=== PATIENT | female | born 1950 | race Caucasian/White ===

== ENCOUNTER 2019-12-18 07:45 | Outpatient (CLI) | payer MEDICARE, OTHER, SELFPAY ==
[2019-12-18 08:33] LABS: Basophils Absolute Auto 0.1 K/mm3 (0.0-0.1); Eosinophils Absolute Auto 0.3 K/mm3 (0-0.3); Eosinophils Percent Auto 4.8 % (0-4.4); Hematocrit 37.3 % (37.0-47.0); Immature Granulocyte Absolute 0.04 K/mm3 (0.00-0.031); Immature Granulocyte Percent A 0.7 % (0-0.5); Lymphocytes Absolute Auto 2.28 K/mm3 (0.9-3.2); Lymphocytes Percent Auto 37.7 % (18.3-44.2); Mean Corpuscular HGB Conc 32.2 g/dl (32-36); Mean Corpuscular Hemoglobin 28.4 pg (26-34); Mean Corpuscular Volume 88.4 fl (80-100); Mean Platelet Volume 10.4 fl (7.4-10.4); Monocytes Absolute Auto 0.4 K/mm3 (0.1-0.6); Monocytes Percent Auto 7.1 % (2.6-8.5); Neutrophils Percent Auto 48.7 % (45.5-73.1); Platelet Count Result 314 k/mm3 (150-375); Red Blood Count 4.22 M/mm3 (4.2-5.4); Red Cell Distribution Width 15.9 % (11.5-14.5); White Blood Count 6.1 K/mm3 (4.5-10.0)
[2019-12-18 08:45] LABS: Hemoglobin A1C 5.5 % (<5.7)
[2019-12-18 08:46] LABS: Alanine Aminotransferase 20 U/L (4-35); Albumin Level 4.4 g/dL (3.5-5.1); Alkaline Phosphatase 122 U/L (38-126); Anion Gap 6 mmol/L (8-16); Aspartate Amino Transferase 25 U/L (14-36); Bilirubin,Total 0.3 mg/dL (0.2-1.3); Blood Urea Nitrogen 10 mg/dL (7-17); Calcium 9.3 mg/dL (8.4-10.2); Carbon Dioxide 28 mmol/L (22-30); Chloride 105 mmol/L (98-107); Cholesterol 206 mg/dL (0-200); Estimated Glomerular Filt Rate > 60; Glucose 98 mg/dL (65-105); HDL Direct 92 mg/dL; Potassium 4.7 mmol/L (3.4-5.0); Sodium 139 mmol/L (137-145); Triglycerides 64 mg/dL (<150)
[2019-12-18 08:49] LABS: Creatinine Urine 107.7 mg/dL
[2019-12-18 08:57] LABS: LDL Cholesterol Direct 76 mg/dL
[2019-12-18 09:04] LABS: MALB Creatinine Ratio < 5.6 mg/g (0-30); Microalbumin Urine Random < 6.0 mg/L (0-16.7)
[2019-12-18 09:34] LABS: Vitamin D 25 Hydroxy 38.4 ng/mL
== END 2019-12-18 07:46 | disposition home or self-care (01) ==
LOC: ANHLAB 07:48
PROVIDERS: PCP Internal Medicine; Visit Provider Internal Medicine
DX: E78.5 Hyperlipidemia, unspecified (principal); E55.9 Vitamin D deficiency, unspecified; R73.01 Impaired fasting glucose
CPT/HCPCS: 36415; 80053; 80061; 82043; 82306; 83036; 84443; 85025

== ENCOUNTER 2020-12-12 07:07 | Outpatient (CLI) | payer MEDICARE, SELFPAY ==
[2020-12-12 07:45] LABS: Basophils Absolute Auto 0.1 K/mm3 (0.0-0.1); Basophils Percent Auto 0.9 % (0.2-1.2); Eosinophils Absolute Auto 0.4 K/mm3 (0-0.3); Eosinophils Percent Auto 5.5 % (0-4.4); Hematocrit 38.2 % (37.0-47.0); Hemoglobin 12.5 g/dL (12.0-15.0); Immature Granulocyte Absolute 0.04 K/mm3 (0.00-0.031); Immature Granulocyte Percent A 0.6 % (0-0.5); Lymphocytes Absolute Auto 2.63 K/mm3 (0.9-3.2); Lymphocytes Percent Auto 41.4 % (18.3-44.2); Mean Corpuscular HGB Conc 32.7 g/dl (32-36); Mean Corpuscular Hemoglobin 30.9 pg (26-34); Mean Corpuscular Volume 94.3 fl (80-100); Mean Platelet Volume 10.3 fl (7.4-10.4); Monocytes Absolute Auto 0.4 K/mm3 (0.1-0.6); Monocytes Percent Auto 5.5 % (2.6-8.5); Neutrophils Absolute Auto 2.9 K/mm3 (1.3-6.7); Neutrophils Percent Auto 46.1 % (45.5-73.1); Platelet Count Result 267 k/mm3 (150-375); Red Blood Count 4.05 M/mm3 (4.2-5.4); White Blood Count 6.4 K/mm3 (4.5-10.0)
[2020-12-12 09:25] LABS: Alanine Aminotransferase 19 U/L (4-35); Albumin Level 4.2 g/dL (3.5-5.1); Alkaline Phosphatase 101 U/L (38-126); Anion Gap 7 mmol/L (8-16); Aspartate Amino Transferase 25 U/L (14-36); Bilirubin,Total 0.4 mg/dL (0.2-1.3); Blood Urea Nitrogen 17 mg/dL (7-17); Calcium 9.2 mg/dL (8.4-10.2); Carbon Dioxide 25 mmol/L (22-30); Chloride 109 mmol/L (98-107); Cholesterol 218 mg/dL (0-200); Estimated Glomerular Filt Rate > 60; Glucose 103 mg/dL (65-110); HDL Direct 109 mg/dL; Potassium 3.9 mmol/L (3.4-5.0); Sodium 141 mmol/L (137-145); Triglycerides 103 mg/dL (<150)
[2020-12-12 09:36] LABS: LDL Cholesterol Direct 73 mg/dL
[2020-12-12 09:39] LABS: Hemoglobin A1C 5.5 % (<5.7)
[2020-12-12 10:06] LABS: Creatinine Urine 62.6 mg/dL
[2020-12-12 10:16] LABS: MALB Creatinine Ratio < 9.6 mg/g (0-30); Microalbumin Urine Random < 6.0 mg/L (0-16.7)
[2020-12-12 10:37] LABS: Folic Acid 5.9 ng/mL (2.76->20); Vitamin B12 > 1000.0 pg/mL (239-931)
== END 2020-12-12 07:08 | disposition home or self-care (01) ==
PROVIDERS: PCP Internal Medicine; Visit Provider Internal Medicine
DX: E53.8 Deficiency of other specified B group vitamins (principal); E55.9 Vitamin D deficiency, unspecified; E78.2 Mixed hyperlipidemia; R73.01 Impaired fasting glucose; Z98.84 Bariatric surgery status
CPT/HCPCS: 36415; 80053; 80061; 82043; 82306; 82607; 82746; 83036; 84443; 85025

== ENCOUNTER 2020-12-14 10:31 | Outpatient (CLI) | payer MEDICARE, SELFPAY ==
--- NOTE | ~2020-12-14 | MR_ITS ---
EXAMINATION: MR wrist LT wo con DATE: 12/14/2020 11:51 INDICATION: Left hand pain and mass TECHNIQUE: Magnetic resonance imaging (MRI) of the left wrist was performed without intravenous contr ast. Sequences performed include axial PD-weighted FSE and PD-weighted FS FSE, coronal PD-weighted FS FSE and T1-weighted SE, and sagittal PD-weighted FS FSE and PD-weighted FSE. COMPARISON: Left hand radiographs dated 09/15/2020 FINDINGS: Intrinsic ligaments: The scapholunate and lunotriquetral ligaments are normal. Triangular fibrocartilage complex (TFCC): Small heterotopic ossicle at the posterior aspect of the ulnar styloid attachments the triangular fib rocartilage complex likely sequela of chronic partial tear. There is a small full-thickness tear at t he radial side of the central fibrocartilaginous disc of the triangular fibrocartilage complex. The f oveal attachment fibrocartilage as well as the dorsal and volar radioulnar ligaments are normal. The ulnar collateral ligament, ulnotriquetral ligament and meniscal homologue are normal. The extensor ca rpi ulnaris tendon subjacent appears thickened but intact consistent with likely chronic scarring. Extensor wrist: Mild tendinopathy with mild diffuse from thickening and mild increased signal some of the extensor di gitorum longus tendons at the level of the wrist joint. Focal split tear with large intrasubstance ga nglion cyst within and markedly splaying the tendon fibers of the extensor digitorum longus tendon to the third digit. The ganglion cyst measures 13 mm proximal to distal and radial to ulnar and up to 5 -6 mm in thickness. This immediately underlies the marker indicating the mass of concern. There is an additional small amount of fluid within the tendon sheath surrounding the tendons extending to the t hird and fourth digits more distally at the level of the base of the metacarpals. Additional small am ount of fluid consistent with mild tenosynovitis in the second dorsal compartment surrounding the nor mal extensor carpi radialis longus and brevis tendons and in the first dorsal compartment surrounding the extensor pollicis longus and abductor pollicis brevis tendons which demonstrate mild tendinopath y without discrete tears at their distal first metacarpal insertions. Flexor wrist: The flexor tendons of the wrist are normal. No abnormality in the carpal tunnel with normal median n erve. Guyon's canal: Guyon's canal including the ulnar nerve and artery are normal. Bones/other: Severe osteoarthritis at the first carpometacarpal joint with remodeling and subarticular cystic lu ge at the base of the first metacarpal which is mildly dorsally subluxed. There is prominent likely r eactive synovitis surrounding the joint space. Bone alignment is otherwise normal. Less severe mild o steoarthritis at the wrist, midcarpal, triscaphe and first metacarpophalangeal joints. No fracture or pathologic marrow replacing process. IMPRESSION: 1. 13 x 13 x 5-6 mm intrasubstance ganglion cyst within a longitudinal split tear and which splays th e tendon fibers of the extensor digitorum longus tendon of the third digit. 2. Severe osteoarthritis at the first carpometacarpal joint. 3. Full-thickness tear at the radial side of the central fiber cartilaginous disc of the triangular f ibrocartilage complex and small heterotopic ossicle suggesting chronic partial tear at the foveal att achment. Reviewed, dictated and finalized at location A. IMPRESSION: 1. 13 x 13 x 5-6 mm intrasubstance ganglion cyst within a longitudinal split te ar and which splays the tendon fibers of the extensor digitorum longus tendon o f the third digit. 2. Severe osteoarthritis at the first carpometacarpal joint. 3. Full-thickness tear at the
== END 2020-12-14 10:32 | disposition home or self-care (01) ==
PROVIDERS: PCP Internal Medicine; Visit Provider Orthopaedic Surgery
DX: M67.432 Ganglion, left wrist (principal); M18.12 Unilateral primary osteoarthritis of first carpometacarpal joint, left hand
CPT/HCPCS: 73221

== ENCOUNTER 2020-12-21 08:58 | Outpatient (CLI) | payer MEDICARE, SELFPAY ==
--- NOTE | 2020-12-21 10:30 | ECG_ITS ---
Measurements Intervals [place] Rate: 55 P: 42 TN: 147 QRS: 52 QRSD: 138 T: 8 QT: 466 QTc: 447 Interpretive Statements SINUS BRADYCARDIA RIGHT BUNDLE BRANCH BLOCK ABNORMAL ECG Electronically Signed On 12-21-2020 10:54:18 CDT by Arvind Adair D.O.
[2020-12-21 12:02] LABS: Iron 132 ug/dL (37-170)
[2020-12-21 12:12] LABS: Percent Iron Saturation 36 % (20-50)
== END 2020-12-21 08:59 | disposition home or self-care (01) ==
PROVIDERS: PCP Internal Medicine; Visit Provider Internal Medicine
DX: G25.81 Restless legs syndrome (principal); Z98.890 Other specified postprocedural states; I10 Essential (primary) hypertension; I44.1 Atrioventricular block, second degree; R00.1 Bradycardia, unspecified; I45.10 Unspecified right bundle-branch block
CPT/HCPCS: 36415; 82728; 83540; 83550; 93005

== ENCOUNTER 2021-01-19 10:48 | Outpatient (CLI) | payer MEDICARE, SELFPAY ==
[2021-01-19 12:34] LABS: Urine Cotinine NEGATIVE
== END 2021-01-19 10:49 | disposition home or self-care (01) ==
LOC: ANHSURGERY 10:53
PROVIDERS: PCP Internal Medicine; Visit Provider Orthopaedic Surgery
DX: M17.11 Unilateral primary osteoarthritis, right knee (principal); Z01.818 Encounter for other preprocedural examination
CPT/HCPCS: 80307; 86850; 86900; 86901; 87081

== ENCOUNTER 2021-01-23 01:18 | Day surgery (SDC) | payer MEDICARE, SELFPAY ==
[2021-01-19 11:11] VITALS: BP 154/71; PULSE 69; RESP 18; TEMP 36.9; O2SAT 98; BMI 34.2
[2021-01-23] VITALS (14 sets, daily range): BP systolic 119–173; BP diastolic 48–78; PULSE 64–89; RESP 10–24; TEMP 36.5–37.6; O2SAT 91–100; BMI 41.3
--- NOTE | ~2021-01-23 | XR_ITS ---
EXAMINATION: XR knee RT 2V DATE: 01/23/2021 13:21 INDICATION: Postoperative evaluation following right total knee arthroplasty. TECHNIQUE: Anteroposterior and lateral views of the right knee were obtained. COMPARISON: 01/02/2021 FINDINGS: Right total knee arthroplasty with patellar resurfacing appears well seated and in near anatomic alig nment. No fractures identified. Expected postoperative subcutaneous, intramedullary and intra-articu lar gas. IMPRESSION: 1. Right total knee arthroplasty, negative for postoperative purposes. Reviewed, dictated and finalized at location A.
--- NOTE | 2021-01-23 08:19 | WPDANESEPPF ---
Anes - Initial Pre Proc Eval Procedure: Operation Date: 01/23/21 10:30 Proposed Procedures p Right Total Knee Arthroplasty - Nomi Munoz MD Date/Time: 01/23/21 08:19 Surgeon: Nomi Munoz MD Pre Op Diagnosis: Oosteoarthritis Right Knee Patient Data Age: 70 Gender: F Height: 1.68 m Weight: 96.4 kg Last Vital Signs Temp 36.9 C 01/19/21 11:11 Pulse 69 01/19/21 11:11 Resp 18 01/19/21 11:11 BP 154/71 H 01/19/21 11:11 Pulse Ox 98 01/19/21 11:11 Allergies Allergy/AdvReac Type Severity Reaction Status Date / Time codeine Allergy Unknown Itching Verified 01/23/21 09:18 Home Medications Medication Instructions Recorded Confirmed Type cyclobenzaprine 10 mg tablet 10 mg PO DAILY PRN tablet 12/22/19 01/23/21 History rivaroxaban 10 mg tablet 10 mg PO DAILY #14 tablet 01/18/21 01/19/21 Rx ascorbic acid-collagen [Collagen 1 cap PO DAILY 01/19/21 01/23/21 History Plus Vitamin C] calcium carb-D3-mag ox-zinc ox 1 tablet PO DAILY 01/19/21 01/23/21 History cholecalciferol (vitamin D3) 25 mcg PO DAILY 01/19/21 01/23/21 History diphenhydramine HCl [Allergy 25 mg PO DAILY 01/19/21 01/23/21 History Capsule] multivitamin [Multiple Vitamin] 1 tablet PO DAILY 01/19/21 01/23/21 History naproxen sodium [Aleve] 220 mg PO QAM 01/19/21 01/23/21 History pantoprazole 40 mg PO QAM 01/19/21 01/23/21 History Patient hx anesthesia problems: none Family hx anesthesia problems: none Results Review: All pre-operative results and documents have been reviewed as part of the pre-operative evaluation. [facility] Past Medical History Medical History (Updated 01/23/21 @ 08:22 by Haseeb Arizmendi MD) Arthritis of carpometacarpal (CMC) joint of left thumb BMI 33.0-33.9,adult Carpal tunnel syndrome, bilateral Fusion of spine, cervical region (~03/19/18) Gout Hypertension Mobitz (type) I (Wenckebach's) atrioventricular block Obesity (BMI 30-39.9) Osteoarthritis Osteoarthritis of right knee Surgical History Surgical History (Updated 01/23/21 @ 08:22 by Haseeb Arizmendi MD) H/O section H/O gastric bypass H/O left knee surgery TKA 2016 H/O: hysterectomy History of arthroscopy of right knee (~12/13/17) History of bunionectomy History of cholecystectomy History of lumbar fusion (~04/2019) Hx of bariatric surgery (~2013) Family History Family History Mother Family history of diabetes mellitus in first degree relative Hypertension Arthritis Grandparent Family history of heart disease in male family member before age 55 Sibling Family history of diabetes mellitus in first degree relative Hypertension Arthritis Father Arthritis Cancer Social History Social History Smoking status: Never smoker Alcohol intake: current Drinks per week: 7 Substance use: never Living arrangements: with family Additional living arrangements comments: [facility] Spiritual care concerns: No Anes - Eval Final PreProcedure Day of Procedure 01/23/21 08:19 Patient weight: obese Heart: regular rate and rhythm Lungs: clear to auscultation and normal air movement Airway: Mallampati scale class II Neurological: alert and oriented Last oral intake: >/= 8 hours ASA classification: III Emergent: no Anesthetic plan: proceed Anesthesia type and monitoring: general LMA Results Review: All pre-operative results and documents have been reviewed as part of the pre-operative evaluation. Informed Consent: The patient's anesthetic plan and its attendant risks and benefits were discussed with the patient/family/POA. Questions were solicited and answers provided to the satisfaction of the patient/family/POA.
--- NOTE | 2021-01-23 08:23 | WPDANESPNB ---
Anes - Peripheral Nerve Block Date/Time: 01/23/21 08:23 I have discussed with the patient/family/POA the placement of a peripheral nerve block for post-operative pain management, including associated risks, benefits, complications, and side effects. Alternative methods of post-operative analgesia were detailed. Questions were solicited and answers provided to the satisfaction of the patient/family/POA. Time-Out: A pre-procedural Time-Out was completed immediately before starting the procedure and confirmed: Patient Identification, Site, Procedure, Patient Position and the Availability of Requisite Equipment. Clinical Indications: Acute post-operative pain management requested by the operative surgeon. Nerve Block Insertion Note Anes-nerve block: adductor canal right Patient position: supine Skin prep: chlorhexidine Needle: 22 gauge, stimulating, insulated echogenic needle. Needle length: 80 mm Technique: ultrasound Technique comment: in plane Injectate: bupivacaine 0.5% with epi 5 mcg/ml (30cc) Observations: tolerated well Complications: none Procedure start time:: 1045 Procedure end time:: 1050
[2021-01-23] MEDS: ACETAMINOPHEN 500 MG TABLET 1000 MG PO ×3 (09:04→23:53)
[2021-01-23] MEDS: TRANEXAMIC ACID 1,000MG/ISO100 1,000 MG/100 ML BAG 200 MG IVPB (09:05)
[2021-01-23] MEDS: LACTATED RINGERS 1,000 ML 30 ML IV CONT (09:17)
--- NOTE | 2021-01-23 09:49 | WPDHPUPDATE1 ---
History and Physical Update Update Date/Time: 01/23/21 09:49 History and Physical has been reviewed, including an updated exam of the patient. There are NO changes in the patient's condition. Risks, benefits, and alternatives have been discussed and questions answered. Patient agrees to proceed with procedure.
[2021-01-23] MEDS: ceFAZolin 2 GM/D5W 50 ML 2 GM/50 ML BAG IVPB (10:57)
[2021-01-23] MEDS: GENTAMICIN BONE CEMENT REFOBACIN 1 EACH TOPICAL (11:35)
--- NOTE | 2021-01-23 12:56 | W.PM.PROC2 ---
Procedure Note - Detailed Date of Procedure 01/23/21 Pre-op Diagnosis Oosteoarthritis Right Knee Post-op Diagnosis same Procedure Performed Right total knee replacement Surgeon Nomi Munoz MD Group Exercise Class Instructor Nedra Rose Anesthesia general and regional Description of Procedure The patient was identified and proper site identified. In the preop holding area the anesthesia team performed a right lower extremity sub sartorial block after which the patient was taken to the operating room and transferred to the OR table positioning supine taking care to pad the torso and extremities. After general anesthetic induction and intubation, a nonsterile tourniquet was placed high on the right thigh. The right lower extremity was prepped and draped in the usual sterile fashion. The extremity was exsanguinated and with the knee flexed tourniquet was inflated to 300 mmHg remaining up for approximately 54 minutes. An anterior midline incision was made and a modified medial parapatellar approach was used. Infra and suprapatellar fat pads were excised. Patella was resected leaving 15 mm thickness and prepared for the 31 round three peg component. Using the intramedullary guide the distal femur was cut in the proper orientation for the size 62.5 femoral component. Using the extramedullary guide the tibia was cut perpendicular to the long axis protecting collateral ligaments and popliteal structures. It was sized to a 71. Flexion and extension gaps were balanced. Trial reduction was undertaken and the weight-bearing line was noted to passed through the center of the joint. Proximal tibia was drilled and punched in the proper orientation for the real component. Trial components were removed. The bone surfaces were washed with pulsatile lavage and dried. The real components were cemented simultaneously. The knee was held in extension and the patella held clamped until the cement had cured. Excess cement was removed from the joint. After trialing it was determined that the 11 mm insert gave full range of motion from 0-120 degrees of flexion and the patella tracked in the femoral groove with no lift-off. After final lavage the joint the real size 11 poly insert was placed and secured with a locking bar. A Betadine and saline wash was placed into the wound and allowed to sit for approximately 3 minutes and then evacuated. Periarticular tissues were infiltrated with 60 cc of the arthroplasty solution. 1 g of tranexamic acid was left in the wound. The extensor mechanism was repaired with #2 Vicryl suture and 0 looped PDS suture. Subcu was reapproximated with three 0 Monocryl, 2-0 Stratafix and tissue adhesive for the skin. A sterile dressing was applied. She tolerated the procedure well, was awakened and extubated, transferred to the bed and was taken to recovery area in stable condition. There were no known intraoperative complications. Perioperative antibiotics were administered. Estimated Blood Loss 150 Tourniquet Time 54 Drains No Packing No Pathology none sent Complications No immediate complications Condition stable Disposition PACU
[2021-01-23] MEDS: fentaNYL CITRATE INJ (*CRX) 100 MCG/2 ML VIAL 25 MCG IV PUSH ×2 (13:30→13:59)
--- NOTE | 2021-01-23 13:43 | SUR.PHASEI ---
Simple mask removed at 1341.
[2021-01-23] MEDS: oxyCODONE HCL (*CRX) 2.5 MG TAB IR PO (15:10)
[2021-01-23] MEDS: DOCUSATE SODIUM 100 MG CAPSULE PO (16:06)
[2021-01-23] MEDS: oxyCODONE HCL (*CRX) 5 MG TAB IR PO ×2 (16:08→20:58)
[2021-01-23] MEDS: CYCLOBENZAPRINE HCL 10 MG TABLET PO (16:08)
--- NOTE | 2021-01-23 16:25 | PC.NURSE ---
pt weaned off post-op 2L nasal cannula oxygen. Pt is satting at 95% oxygenation on room air.
[2021-01-23] MEDS: KETOROLAC 15 MG/ML VIAL (*BKC) IV PUSH ×2 (18:04→23:53)
[2021-01-24 03:22] VITALS: BP 110/41; PULSE 60; RESP 16; TEMP 36.8; O2SAT 97
[2021-01-24] MEDS: oxyCODONE HCL (*CRX) 5 MG TAB IR PO ×2 (03:32→11:42)
[2021-01-24] MEDS: KETOROLAC 15 MG/ML VIAL (*BKC) IV PUSH (06:35)
[2021-01-24] MEDS: ACETAMINOPHEN 500 MG TABLET 1000 MG PO ×2 (06:37→11:40)
--- NOTE | 2021-01-24 07:24 | PM.DS ---
DS: Admitting Diagnosis Discharge Date January 24, 2021 Admitting Diagnosis osteoarthritis right knee DS: Discharge Diagnosis Discharge Diagnosis (1) History of right knee joint replacement: Code(s): Z96.651 - Presence of right artificial knee joint Status: Resolved Assessment and Plan: Plan to discharge home today after second physical therapy. DS: Summary Hospital Course Reason for hospitalization: Observation following outpatient procedure Hospital Course: Following the patient's surgery, she was admitted to the floor for observation and to begin her therapy. Made reasonable progress and plan is to discharge later today. Status at Discharge Functional status at discharge: uses cane/walker Overall status at discharge: patient is not back to baseline Time Spent with Patient Time attestation: Total time spent providing and/or coordinating discharge services: Exam Const: General: cooperative, no acute distress and alert Nutritional Appearance: other Orientation/consciousness: patient oriented x3 Limitations: no limitations HENMT: Head: normal to inspection Ears: hearing grossly normal bilaterally Face and sinus: face symmetric Mouth: Yes moist mucous membranes Teeth and gingiva: fair dentition Eyes: Alignment and Position: alignment normal and position normal Sclera: sclerae normal Neck: Neck: normal visual inspection and nontender Chest: Chest palpation & inspection: normal inspection of the chest Resp: Effort & Inspection: normal respiratory effort and able to speak in complete sentences GI: Inspection: other ( Nondistended nontender) Skin: General skin exam: normal color Rashes: no rashes Neuro: General: patient oriented x3 Cognition (Neuro): normal cognition Speech: normal speech Gait exam (Neuro): Other gait observations present Extrem: General: normal to inspection and other Other: Exam of the right knee shows a dry incision. Mild bruising noted. Modest swelling. Calves negative. Grossly neurovascular status intact right lower extremity. Psych: Appearance: grossly normal Mental Status: mental status grossly normal DS: Data Imaging Attestation: I personally reviewed and interpreted this imaging study as follows: Discharge Plan Discharge Patient Disposition: Home, Self-Care Discharge Instructions: 3 times daily for 20 minutes each time, reclining in bed with ice packs over the incision and a pillow underneath the calf of the affected leg, not under the knee. Your wound is glued so it is okay to get into the shower and get the wound wet in two days. Be sure to read through all the information that came from a my office and the hospital. Most of the answers you will need can be found that material. Call the office with any questions that you cannot find answers to, or concerns you may have. After the Xarelto is completed, start taking one coated 325 mg aspirin daily and do this for four more weeks. Please call [facility] at as soon as possible to verify 7your follow-up appointment to be seen in 2 weeks. Also, call the office with any orthopedic/surgical related questions prior to follow-up. Be sure to get up and move around several times daily but do not overdo it. You will be on Celebrex twice daily for seven days. Be sure to take that as well. Take the arthritis formula Tylenol 650 mg tablet on an 8 hour schedule. A good 8 hour schedule is: 6:00 a.m., 2:00 p.m., 10:00 p.m. you may take the prescribed pain medication along with the Tylenol; it is not to be taken instead of the Tylenol. I would like for you to take the Tylenol on a schedule for 2-3 weeks. It is helpful to write out a schedule for the first week or two for the medications. Once the Xarelto is completed, if you wish to supplement your pain regimen with [id number] anti-inflammatory such as Advil or Aleve, that is fine. Follow the label instructions. Do not take this medicine
[2021-01-24] MEDS: DOCUSATE SODIUM 100 MG CAPSULE PO (08:39)
[2021-01-24] MEDS: PANTOPRAZOLE 40 MG TABLET PO (08:39)
[2021-01-24] MEDS: diphenhydrAMINE HCl CAP 25 MG CAPSULE PO (08:39)
[2021-01-24] MEDS: RIVAROXABAN 10 MG TABLET PO (08:40)
[2021-01-24] MEDS: CHOLECALCIFEROL 1,000 UNITS TABLET 1000 UNITS PO (08:40)
[2021-01-24 08:41] VITALS: RESP 16; O2SAT 98
[2021-01-24] MEDS: MULTIVITAMINS THERAPEUTIC TAB (*BKC) 1 TABLET PO (08:41)
--- NOTE | 2021-01-24 11:03 | PCPTNOTE ---
On 01/24/21, the student, Felipe Coelho, provided care and completed [facility] documentation on this patient. I have reviewed the student's documentation and agree with the findings.
== END 2021-01-24 12:55 | disposition home or self-care (01) ==
LOC: ANHSURGERY 12:50 → ANH2MED 14:39
PROVIDERS: PCP Internal Medicine; Visit Provider Orthopaedic Surgery
PROC: (CPT 27447; principal; 2021-01-23 10:30)
DX: M17.11 Unilateral primary osteoarthritis, right knee (principal); G89.18 Other acute postprocedural pain; I10 Essential (primary) hypertension; I44.1 Atrioventricular block, second degree; M10.9 Gout, unspecified; Z98.1 Arthrodesis status; Z79.01 Long term (current) use of anticoagulants; E66.9 Obesity, unspecified; Z68.41 Body mass index [BMI] 40.0-44.9, adult
CPT/HCPCS: 27447; 64447; 73560; 97110; 97161; 97165; A9270; C1713; C1776; J0171; J0690; J1100; J1170; J1885; J2250; J2270; J2370; J2405; J2704; J2795; J3010; J7120

== ENCOUNTER 2021-02-10 07:42 | Outpatient (CLI) | payer MEDICARE, SELFPAY ==
--- NOTE | ~2021-02-10 | DEXA_ITS ---
Bone Density Report Name: Kelli Mckeon Age: 70 Sex: Female Ethnicity: White Date of : 1950 Indication: postmenopausal; parental hip fracture; height loss; prior fracture; hysterectomy; Referring Provider: Martínez Jack Study: Bone densitometry was performed. Exam Date: February 10, 2021 Accession number: [id number] Bone Density: Region BMD T-score Z-score Classification Femoral Neck (Left) 0.694 -1.4 0.4 Osteopenia Total Hip (Left) 0.940 0.0 1.5 Normal Total Hip Bilateral Avg 0.896 -0.3 1.1 Normal Femoral Neck (Right) 0.676 -1.6 0.2 Osteopenia Total Hip (Right) 0.851 -0.7 0.7 Normal World Health Organization criteria for BMD impression classify patients as: Normal (T-score at or above -1.0), Osteopenia (T-score between -1.0 and -2.5), or Osteoporosis (T-score at or below -2.5). 10-year Fracture Risk(1): Major Osteoporotic Fracture 23% Hip Fracture 3.8% Reported Risk Factors: [place] (), Neck BMD=0.676, BMI=34.4, previous fracture, parental fracture (1) FRAX(R) Version 3.08. Fracture probability calculated for an untreated patient. Fracture probability may be lower if the patient has received treatment. Previous Exams: Region Exam Age BMD T-score BMD Change BMD Change Date g/cm2 vs Baseline vs Previous Total Hip(Left) 02/10/2021 70 0.940 0.0 -0.065(-6.5%)* -0.065(-6.5%)* 08/09/2017 67 1.005 0.5 Total Hip(Right) 02/10/2021 70 0.851 -0.7 -0.089(-9.4%)* -0.089(-9.4%)* 08/09/2017 67 0.940 0.0 *Denotes significance at 95% confidence level, LSC for Total Hip = 0.027 g/cm2 Clinical Information Provided by Patient: Has had a low trauma fracture Parent has had a hip fracture Has used the following medications: Vitamin D, Calcium Has the following medical conditions: Hysterectomy Patient maximum height was 67.5 Menopause Age: 27 No regular weight bearing exercise Drinks caffeinated beverages Onset of menses at age 14 Number of children 1 Impression: The patient has low bone mass, based on the Right Femoral Neck T-score. The patient has an estimated ten-year risk of hip fracture of 3.8% and an estimated ten-year risk of major fracture of 23%, based on the WHO FRAX algorithm. The patient has risk factors, including: parental hip fracture, previous fracture. The BMD for the Total Hip(Left) decreased, changing by -6.5% since the last DXA exam. The BMD for the Total Hip(Right) decreased, changing by -9.4% since the last DXA exam. Discussion: BONE DENSITY IS LOW AT ONE
== END 2021-02-10 07:43 | disposition home or self-care (01) ==
LOC: ANHIMG 07:43
PROVIDERS: PCP Internal Medicine; Visit Provider Internal Medicine
DX: Z78.0 Asymptomatic menopausal state (principal); M85.88 Other specified disorders of bone density and structure, other site; M85.851 Other specified disorders of bone density and structure, right thigh
CPT/HCPCS: 77080

== ENCOUNTER 2021-03-02 07:30 | Outpatient (RCR) | payer MEDICARE, SELFPAY ==
--- NOTE | 2021-01-30 14:45 | PTOPEVAL ---
PHYSICAL THERAPY EVALUATION AND PLAN OF CARE Thank you for referring Kelli Mckeon to [facility].? The patient is scheduled to be seen for therapy? 2x/week for 5 weeks. Please review, sign, date and return this plan of care SHER. I agree with and certify that the following plan of care is medically necessary. Referring Physician Date Attending Provider: Nomi Munoz MD Evaluation Outpatient Past Medical History Neurological History Hx Migraine Yes: gets sporadically; no meds Cardiovascular History Hx Cardiac Arrhythmia Yes: right bundle branch block ; no meds Respiratory History Hx Respiratory Disorders No Significant History Gastrointestinal History Hx Cholecystectomy Yes Hx Gastric Bypass Surgery Yes: BARIATRIC SLEEVE 09/2011 Hx Gastroesophageal Reflux Disease Yes Genitourinary History Hx Genitourinary Disorders No Significant History Musculoskeletal History Hx Arthritis Yes: OA RT KNEE, BACK, NECK Hx Gout Yes: not in last 10 years Hx Joint Replacement Yes: LTKA -2016 Hx Orthopedic Surgery Yes: WIRES RT FINGERS/FX Hx Spinal Surgery Yes: CERVICAL FUSION X2 2018,LUMBAR FUSION 2019- [facility] CERVICAL & LUMBAR Hematological History Hx Hematological Disorders No Significant History Endocrine History Hx Endocrine Disorders No Significant History HEENT History Hx Cataracts Yes: FORMING CATARACTS Hx Sinus Problems Yes Integumentary History Hx Skin Disorders No Significant History Reproductive History Hx Section Yes: X2 Psychosocial History Hx Anxiety Yes: PRIOR TO PRISON Pain History Has Past Pain Affected Your Daily Life Yes: NECK, BACK, KNEE Anesthesia History Hx Post-Op Nausea/Vomiting Yes: NAUSEA Other History Hx Implanted Device Yes: LT KNEE, CERVICAL & LUMBAR SPINE, RT FINGERS Diagnosis right TKA Onset 01/23/2021 Subjective Information Kelli is here 1 wk s/p right Query Text:As Reported By Patient/ TKA. She confesses to not Family doing very many exercises because of pain in the knee. States that this one is worse than when she had the left done. Does walk around the house several times a day and has been getting into the shower. She has 1 step up onto her porch and one step into the house and have been doing
--- NOTE | 2021-03-02 08:02 | PTOPEVAL ---
PHYSICAL THERAPY DISCHARGE Thank you for referring Kelli Mckeon to [facility].? Please review, sign, date and return this plan of care SHER. I agree with and certify that the following plan of care is medically necessary. Referring Physician Date Attending Provider: Nomi Munoz MD Diagnosis right TKA Onset 01/23/2021 Subjective Information Kelli is here 5 wks s/p right Query Text:As Reported By Patient/ TKA. She comes in with a cane Family today. She states that she feels pretty good. there continues to be some tightness and swelling. Most pain she has is a 4/10 after she does a lot of activities. There might be more stiffness than pain. Self Report Pain Assessment Right Knee(s) Reported Pain Level 1 Pain Description Aching,Burning,Throbbing Pain Frequency Continuous Greatest Pain Intensity 4 Pain Behaviors Anxious,Grimacing,Guarding Pain Score Pain Score 1: Self Report Interventions Used Interventions Used By Clinicians Exercise,Ice,Manual Therapy Techniques Pain Relief Interventions Used By Ice,Medication,Position Change Patient Lower Extremity Range of Motion Knee Range of Motion Right Knee Flexion Range of Motion - Active 125 Knee Extension Range of Motion - Active 0 Query Text: Lower Extremity Muscle Strength Testing Hip Strength Right Hip Flexion Strength 4+ Good + Hip Abduction Strength 4- Good - Knee Strength Right Knee Flexion Strength 5 Normal Knee Extension Strength 4+ Good + Knee Strength Comments able to stand on right LE for 4 seconds Gait Assessment 2 Minute Walk Total Distance Walked (feet) 311 2 Minute Walk Gait Speed Score (feet/ 2.59 second) 2 Minute Walk Test Comments with cane Rehab Teaching Rehab Teaching Teaching Topic Rehab Teaching Topic Components Body Mechanics,Transfer/ Mobility Training As Pertains To Body Mechanics,Technique Recipient Patient Learning Preferences Demonstration,Discussion,One- on-One Instruction Barriers to Learning Motivation Readiness to Learn Good Response Returns Demonstration, Verbalizes Understanding Method Demonstration,Discussion,
== END 2021-03-02 16:33 | disposition home or self-care (01) ==
LOC: ANHPT 07:30
PROVIDERS: PCP Internal Medicine; Visit Provider Orthopaedic Surgery
DX: Z47.1 Aftercare following joint replacement surgery (principal); Z96.651 Presence of right artificial knee joint
CPT/HCPCS: 97014; 97110; 97116; 97140; 97162; G0283

== ENCOUNTER 2021-03-27 02:03 | Day surgery (SDC) | payer MEDICARE, SELFPAY ==
[2021-03-16 14:14] VITALS: BMI 34.4
--- NOTE | 2021-03-16 14:23 | PC.NURSE ---
Report to the Outpatient Waiting Room, entrance under the green pavilion located off [facility], at time __10:00AM on date _03/27/21____. OR Time: ____12:00PM____. - You and your visitor will be asked a series of questions to screen for COVID 19 for your protection. - A mask is required within the hospital. - Only one visitor is allowed at this time. Patient visitors will be guided where to wait when not with patient. Preoperative COVID Testing Requirements: No COVID Test needed if: (proof is required; if not received patient will have Rapid Test prior to entry) - Patient has received COVID Vaccine at least 14 days prior to procedure date or - Patient has positive COVID test result within last 90 days of surgery date. COVID Test needed if above criteria is not met If not COVID vaccinated a COVID test must be conducted within 72 hours of surgery and patient is asked to isolate self from time of testing until procedure. You will go to the [employer] [facility] for your COVID testing. The [employer] [facility] is located at the corner of [address] [facility]. You will only be called if COVID results are positive and your surgeon may reschedule your elective surgery date. Patients may have clear liquids (water, carbonated beverages, clear teas, apple juice) until 3 hours prior to surgery with a maximum of 20 ounces. - No food from midnight until time of surgery - Infants may have breast milk until 4 hours before surgery, infant formula 6 hours prior to surgery. - Children will be allowed to drink immediately following surgery. If applicable, please bring a bottle or sippy cup to assist with drinking. Juice, water, soda, and popsicles are readily available. For infants on formula, please bring formula the day of surgery. Pacifiers are allowed. Take the following medications with a SIP of water the morning of surgery: NONE Medications to discontinue per physician ALL VITAMINS/SUPPLEMENTS 3 DAYS PRE-OP Date to take last dose__03/23/21 Please no make-up, nail indian, hairspray, perfume, deodorant, or body powder the day of surgery. No jewelry (including any body piercings) or valuables the day of surgery, leave them at home. Please take a shower or bath the night before, or the morning of, surgery with an antibacterial soap. Wear comfortable, loose fitting clothing. Children are encouraged to wear pajamas. - Jewelry must be removed prior to entering the operating room. Rings and piercings that are not removed may be cut off. - The hospital will not accept responsibility for valuables. - Please leave all valuables, including medications, at home the day of surgery. If you are going home after surgery, a licensed food service driver must drive you home. - NO public transportation without another adult. - We recommend that an adult stay with you for 24 hours following discharge. - We also recommend that you do not drive, make important decision, drink alcoholic beverages, or take any drugs that were not prescribed by your health care provider for at least 24 hours after your discharge time. For Pediatric surgeries, we recommend two adults accompany the child home (only one inside the building at this time). Follow any additional instructions given to you from your surgeon. Telephone instructions given to ___PATIENT and asked if any additional questions and then verbalized understanding. Patient advised to call surgeon office or pre surgery nurse liaison [phone] if any additional questions.
[2021-03-27] VITALS (8 sets, daily range): BP systolic 151–176; BP diastolic 60–84; PULSE 68–73; RESP 12–189; TEMP 36.4–36.6; O2SAT 93–100
--- NOTE | ~2021-03-27 | XR_ITS ---
EXAMINATION: XR hand LT min 3V DATE: 03/27/2021 13:44 INDICATION: Postoperative assessment at the left hand. TECHNIQUE: Posteroanterior, oblique and lateral views of the left hand were obtained. COMPARISON: 09/15/2020 FINDINGS: Interval resection of the trapezium likely for first carpal metacarpal suspension arthroplasty. Align ment remains essentially anatomic. No fracture. Hypertrophic and cystic change at the base of the fir st carpal related to prior first carpometacarpal osteoarthritis. Fiberglas splinting material along t he radial and palmar aspect of the hand. IMPRESSION: 1. Postoperative changes consistent with left first carpal metacarpal suspension arthroplasty. Reviewed, dictated and finalized at location A. ENTRY MACHINE OPERATOR IMPRESSION: 1. Postoperative changes consistent with left first carpal metacarpal suspensio n arthroplasty.
--- NOTE | 2021-03-27 10:38 | WPDANESEPPF ---
Anes - Initial Pre Proc Eval Procedure: Operation Date: 03/27/21 12:00 Proposed Procedures p Carpal Metacarpal Arthroplasty Left Thumb, Excision Ganglion Left Hand - Nomi Munoz MD Date/Time: 03/27/21 10:38 Surgeon: Nomi Munoz MD Pre Op Diagnosis: left thumb CMC arthritis, left hand ganglion Patient Data Age: 70 Gender: F Height: 1.68 m Weight: 97.35 kg Last Vital Signs Temp 36.6 C 03/27/21 10:27 Pulse 72 03/27/21 10:27 Resp 189 H 03/27/21 10:27 BP 156/84 H 03/27/21 10:27 Pulse Ox 100 03/27/21 10:27 Allergies Allergy/AdvReac Type Severity Reaction Status Date / Time codeine Allergy Unknown Itching Verified 03/27/21 10:23 Home Medications Medication Instructions Recorded Confirmed Type Collagen Plus Vitamin C 1 cap PO DAILY 01/19/21 03/27/21 History calcium carb-D3-mag ox-zinc ox 1 tablet PO DAILY 01/19/21 03/27/21 History cholecalciferol (vitamin D3) 25 mcg PO DAILY 01/19/21 03/27/21 History multivitamin 1 tablet PO DAILY 01/19/21 03/27/21 History pantoprazole 40 mg PO QAM 01/19/21 03/27/21 History acetaminophen 650 mg 650 mg PO TID PRN tablet 02/17/21 03/27/21 History tablet,extended release alendronate 70 mg tablet 70 mg PO WEEKLY #14 tablet 02/17/21 03/27/21 Rx aspirin 325 mg tablet 325 mg PO DAILY 02/17/21 03/27/21 History cyclobenzaprine 10 mg tablet 10 mg PO DAILY PRN #20 tablet 03/07/21 03/27/21 Rx cetirizine 10 mg PO DAILY 03/16/21 03/27/21 History Patient hx anesthesia problems: none Family hx anesthesia problems: post op nausea/vomiting Results Review: All pre-operative results and documents have been reviewed as part of the pre-operative evaluation. 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 BMI 33.0-33.9,adult Carpal tunnel syndrome, bilateral Fusion of spine, cervical region (~03/19/18) Ganglion, left hand dorsal hand ganglion Gout Hypertension Mobitz (type) I (Wenckebach's) atrioventricular block Obesity (BMI 30-39.9) Osteoarthritis Osteoarthritis of right knee Surgical History Surgical History H/O section H/O gastric bypass H/O left knee surgery TKA 2016 H/O: hysterectomy History of arthroscopy of right knee (~12/13/17) History of bunionectomy History of cholecystectomy History of lumbar fusion (~04/2019) History of right knee joint replacement January 23, 2021 Hx of bariatric surgery (~2013) Family History Family History Mother Family history of diabetes mellitus in first degree relative Hypertension Arthritis Grandparent Family history of heart disease in male family member before age 55 Sibling Family history of diabetes mellitus in first degree relative Hypertension Arthritis Father Arthritis Cancer Social History Social History Smoking status: Never smoker Second hand tobacco smoke exposure: No Alcohol intake: current Drinks per week: 7 Alcohol use details: wine or mixed drink Substance use: never Substance use type: does not use Living arrangements: with family Additional living arrangements comments: SP[facility]SE Spiritual care concerns: No Anes - Eval Final PreProcedure Day of Procedure 03/27/21 10:38 Patient weight: obese Heart: regular rate and rhythm Lungs: clear to auscultation Airway: Mallampati scale class II Neurological: alert and oriented Last oral intake: >/= 8 hours ASA classification: II Emergent: no Anesthetic plan: proceed Anesthesia type and monitoring: general LMA and standard monitoring Results Review: All pre-operative results and documents have been reviewed as part of the pre-operative evaluation. Informed Consent: The patient's anesthetic plan and its attendant risks and
[2021-03-27] MEDS: LACTATED RINGERS 1,000 ML 30 ML IV CONT ×2 (10:43→13:35)
[2021-03-27] MEDS: KETOROLAC 15 MG/ML VIAL (*BKC) IV PUSH (10:44)
[2021-03-27] MEDS: ACETAMINOPHEN 500 MG TABLET 1000 MG PO (10:44)
--- NOTE | 2021-03-27 11:02 | WPDHPUPDATE1 ---
History and Physical Update Update Date/Time: 03/27/21 11:02 History and Physical has been reviewed, including an updated exam of the patient. There are NO changes in the patient's condition. Risks, benefits, and alternatives have been discussed and questions answered. Patient agrees to proceed with procedure.
--- NOTE | 2021-03-27 11:28 | WPDANESPNB ---
Anes - Peripheral Nerve Block Date/Time: 03/27/21 11:28 I have discussed with the patient/family/POA the placement of a peripheral nerve block for post-operative pain management, including associated risks, benefits, complications, and side effects. Alternative methods of post-operative analgesia were detailed. Questions were solicited and answers provided to the satisfaction of the patient/family/POA. Time-Out: A pre-procedural Time-Out was completed immediately before starting the procedure and confirmed: Patient Identification, Site, Procedure, Patient Position and the Availability of Requisite Equipment. Clinical Indications: Acute post-operative pain management requested by the operative surgeon. Nerve Block Insertion Note Anes-nerve block: supraclavicular left Patient position: other (sitting) Skin prep: chlorhexidine Needle: 22 gauge, stimulating, insulated echogenic needle. Needle length: 50 mm Technique: nerve stimulation lost at (mA) (0.4) and ultrasound Technique comment: mid 2mg [id number] Injectate: bupivacaine 0.5% with epi 5 mcg/ml (30ml no epi) and dexamethasone (mg) (4) Observations: tolerated well Complications: none Procedure start time:: 1119 Procedure end time:: 1126
[2021-03-27] MEDS: ceFAZolin 2 GM/D5W 50 ML 2 GM/50 ML BAG IVPB (11:39)
--- NOTE | 2021-03-27 13:43 | P.OP_ITS ---
Procedure Note - Detailed Date of Procedure 03/27/21 Pre-op Diagnosis left thumb CMC arthritis, left hand ganglion Post-op Diagnosis same Procedure Performed Left thumb CMC suspension arthroplasty; excision ganglion dorsum left hand Surgeon Nomi Munoz MD Dance Studio Manager Stephanie Steel Anesthesia general and regional Description of Procedure The patient was identified proper site identified. In the preop holding area the anesthesia team performed a left upper extremity block. She was then taken to the operating room transferred to the OR table placing her supine taking care to pad the torso and extremities. After general anesthetic induction and intubation, a nonsterile tourniquet was placed high on the left arm. The left upper extremity was prepped and draped in usual sterile fashion. Extremity was exsanguinated and tourniquet was inflated to 200 mmHg remaining up for approximately 80 minutes. The ganglion was approached first. Longitudinal incision was made over the ganglion. Subcutaneous tissue bluntly dissected exposing the extensor tendons. The ganglion was within the substance of the common extensor tendon group just distal to the extensor retinaculum. This was accessed between the fibers of the tendon is much of the ganglion material as possible was cleared out leaving the tendon fibers in continuity the gelatinous fluid had the typical appearance a ganglion. Wound was irrigated with sterile saline. Skin edges reapproximated with 4-0 nylon interrupted sutures. Attention was then turned to the CMC arthroplasty. A longitudinal incision was made over the FCR tendon curving radially at the base of the thenar musculature. Subcutaneous tissue bluntly dissected protecting neurovascular structures. A slip of the APL which inserted into the thenar musculature was released and marked for later repair. The thenar musculature was elevated up off of the carpus and the trapezium identified. While protecting the FCR, a trapeziectomy was performed. The a ulnar-sided distally-based 8 cm slip of FCR was then developed hand used to create a sling weaving the tendon slip between the FCR tendon and the APL tendon securing it to itself with 3-0 Ethibond suture. The EPL tendon was advanced on itself and also secured with 3-0 Ethibond suture seating the sling in the trapeziectomy site. This allowed the thumb to sit very nicely in a position of function. The EPB tendon was then reefed also with 3-0 Ethibond taking up the slack in that structure. The wound was irrigated with sterile antibiotic solution. The wrist capsule and thenar musculature were tacked back down with 4-0 Monocryl. The slip of the EPL was reattached to the thenar musculature with 3-0 Ethibond. Skin edges were reapproximated with 4-0 Monocryl and then of 4-0 Prolene running subcuticular stitch. Steri-Strips were applied. Sterile dressings applied and the tourniquet was released. Well- padded thumb spica splint was fashioned. The patient tolerated procedure well . She was awakened extubated and taken to recovery area in stable condition. There were no known intraoperative complications. Estimated blood loss was negligible. Perioperative antibiotics were administered. Estimated Blood Loss 5 Tourniquet Time 80 Drains No Packing No Pathology none sent Complications No immediate complications Condition stable Disposition PACU
[2021-03-27] MEDS: oxyCODONE HCL (*CRX) 5 MG TAB IR PO (14:37)
== END 2021-03-27 15:23 | disposition home or self-care (01) ==
PROVIDERS: PCP Internal Medicine; Visit Provider Orthopaedic Surgery
PROC: (CPT 25447; principal; 2021-03-27 12:00)
DX: M18.12 Unilateral primary osteoarthritis of first carpometacarpal joint, left hand (principal); M67.442 Ganglion, left hand; G89.18 Other acute postprocedural pain; I10 Essential (primary) hypertension; I44.1 Atrioventricular block, second degree; M10.9 Gout, unspecified; Z98.1 Arthrodesis status; E66.9 Obesity, unspecified; Z68.34 Body mass index [BMI] 34.0-34.9, adult; Z98.84 Bariatric surgery status
CPT/HCPCS: 25447; 26160; 64415; 73130; A4565; A9270; J0690; J1100; J1885; J2250; J2405; J2704; J3010; J7120

== ENCOUNTER 2021-05-24 07:30 | Outpatient (RCR) | payer MEDICARE, SELFPAY ==
--- NOTE | 2021-04-17 08:25 | OTOPEVAL ---
OCCUPATIONAL THERAPY INITIAL EVALUATION REPORT 04/17/21 Thank you for referring Kelli Mckeon to [facility].? The patient is scheduled to be seen for therapy? 1-2x/week for 3 weeks. Please review, sign, date and return this plan of care SHER. I agree with and certify that the following plan of care is medically necessary. Referring Physician Date Referring Provider: Nomi Munoz MD *OT Outpatient Evaluation Start: 04/17/21 07:31 Outpatient Past Medical History Neurological History Hx Migraine Yes: gets sporadically; no meds Cardiovascular History Hx Other Cardiac Disorders Yes: RT BBB ON EKG Respiratory History Hx Respiratory Disorders No Significant History Gastrointestinal History Hx Cholecystectomy Yes Hx Gastric Bypass Surgery Yes: BARIATRIC SLEEVE 09/2011 Hx Gastroesophageal Reflux Disease Yes Genitourinary History Hx Genitourinary Disorders No Significant History Musculoskeletal History Hx Back Pain Yes Hematological History Hx Hematological Disorders No Significant History Endocrine History Hx Endocrine Disorders No Significant History HEENT History Hx Cataracts Yes: FORMING CATARACTS Hx Sinus Problems Yes Integumentary History Hx Skin Disorders No Significant History Reproductive History Hx Section Yes: X2 Psychosocial History Hx Anxiety Yes: PRIOR TO ALF Pain History Has Past Pain Affected Your Daily Life Yes: NECK, BACK, KNEE Anesthesia History Hx Post-Op Nausea/Vomiting Yes: NAUSEA Other History Hx Implanted Device Yes: LT KNEE, CERVICAL & LUMBAR SPINE, RT FINGERS Evaluation Information Problem Diagnosis Left thumb CMC arthroplasty Onset 03/27/21 Subjective Information Patient lives at home with her Query Text:As Reported By Patient/ who has been helping Family with any heavy lifting, griping, or pinching. She has been having difficulties with opening jars and hooking her bra. Prior Level of Function Activity Level (Last 3 Months) Occupation Retired Hand Dominance Right Activity of Daily Living Ability Independent Cooking Yes Cleaning Yes Laundry Yes Shopping Yes Driving Yes Pain Assessment Timing of Pain Assessment Timing of Pain Assessment Assessment Pain Scale Pain Scale Used Numeric (1 - 10) Self Report Pain Assessment Left Hand(s) Reported Pain Level 1 Pain Description Throbbing
--- NOTE | 2021-05-09 08:37 | OTOPEVAL ---
OCCUPATIONAL THERAPY RE-EVALUATION AND PROGRESS NOTE 05/09/21 Kelli is 6 weeks post left thumb CMC arthroplasty. She has made great progress with functional ROM and reports improved functional use with fine motor tasks. She continues to have limitations due to residual weakness. A strengthening HEP was issued today and patient completes with excellent understanding. She follows up with today and will hopefully be ready to have the splint discharged. Recommend that she continues to strengthen and gradually use her hand for more ADL tasks. Discussed d/c today vs. one more follow up in 2 weeks to assess her progress with strengthening. At this time she prefers to schedule one final visit in 2 weeks to assess her strength after 2 weeks of strengthening and use and to wrap up. Plan to see patient for 1 final visit on 05/25/21 and assess for discharge. Thank you for referring Kelli Mckeon to [facility].? The patient is scheduled to be seen for therapy? 0-1x/week for 2 weeks. Please review, sign, date and return this plan of care SHER. I agree with and certify that the following plan of care is medically necessary. Referring Physician Date Referring Provider: Nomi Munoz MD *OT Outpatient Re-Evaluation Start: 04/17/21 07:31 Diagnosis Left thumb CMC arthroplasty Onset 03/27/21 Subjective Information Patient reports improved Query Text:As Reported By Patient/ flexibility in the left wrist Family and thumb. She continues to report intermittent twinges of pain with some wrist movements. She reports now being able to use a can agate setter and hook her bra. Pain Assessment Timing of Pain Assessment Timing of Pain Assessment Pre-Treatment Pain Scale Pain Scale Used Numeric (1 - 10) Self Report Pain Assessment Left Hand(s) Reported Pain Level 0 Lowest Pain Intensity 0 Greatest Pain Intensity 3 Pain Score Pain Score 0: Self Report Additional Pain Score Comments Patient reports some soreness with hand use, but little pain . Upper Extremity Range of Motion Elbow/Forearm Range of Motion Left Forearm Supination - Active 85 Forearm Pronation - Active 85 Wrist Range of Motion Left Wrist Flexion - Active 65 Wrist Extension - Active 60 Wrist Radial Deviation - Active 22 Wrist Ulnar Deviation - Active 35 Wrist Range of Motion Comments Flexion improved from 50* Extension improved from 45* RD improved from 15* UD improved from 25* Finger Range of Motion Left Finger Range of Motion Comments Full fist - WNL Hook fist - WNL Thumb Range of Motion Left Thumb MCP Flexion - Active 50 Thumb IP Flexion - Active 55 Thumb CMC Radial Abduction - Active 50 Thumb CMC
--- NOTE | 2021-05-24 07:55 | OTOPEVAL ---
OCCUPATIONAL THERAPY DISCHARGE NOTE 05/24/21 Kelli presents today after a 2 week therapy break for a child life assistant/pinch strength reassessment. She has improved in all areas with her strength and has been progressed to the next resistive theraputty. She verbalizes excellent understanding of her HEP and has no further questions. OT goals have been met. D/C with HEP. Thank you for referring Kelli Mckeon to [facility]. Please review, sign, date and return this plan of care SHER. I agree with and certify that the following plan of care is medically necessary. Referring Physician Date Referring Provider: Nomi Munoz MD *OT Outpatient Re-Evaluation Start: 04/17/21 07:31 Problem Diagnosis Left thumb CMC arthroplasty Onset 03/27/21 Subjective Information Patient presents today for a Query Text:As Reported By Patient/ final re-evaluation of child life assistant/ Family pinch strength after 2 weeks of strengthening and being out of her splint. She states everything is progressing. She continues to report some achy pain intermittently. Pain Assessment Timing of Pain Assessment Timing of Pain Assessment Re-assessment Pain Scale Pain Scale Used Numeric (1 - 10) Self Report Pain Assessment Left Hand(s) Reported Pain Level 1 Pain Description Aching Pain Score Pain Score 1: Self Report Interventions Used Interventions Used By Clinicians Rest Hand Hotel Valet Attendant/Pinch Strength Assessment Hand Left Hotel Valet Attendant Strength (lbs) 49.33 Lateral Pinch Strength (lbs) 1.83 Palmar Pinch Strength (lbs) 0.5 Tip Pinch Strength (lbs) 1 Hand Hotel Valet Attendant/Pinch Strength Comments Measurements from 05/09/21: Hotel Valet Attendant 40.67 lbs. Lateral 0.83 lbs. Palmar 0 lbs. Tip 0 lbs. Upper Extremity Exercise Finger/Thumb Exercise Left Other Finger/Thumb Exercises Patient reports that she progressed to the red putty, which is starting to feel easy . Issued green putty. Recommended that she continue her strengthening HEP for another 4 weeks. She verbalizes excellent understanding. OT Clinical Summary OT Clinical Summary Kelli presents today after a 2 week therapy break to independently complete her strengthening HEP for a child life assistant/ pinch strength reassessment.
== END 2021-05-24 09:14 | disposition home or self-care (01) ==
LOC: ANHOT 07:30
PROVIDERS: PCP Internal Medicine; Visit Provider Orthopaedic Surgery
DX: M18.12 Unilateral primary osteoarthritis of first carpometacarpal joint, left hand (principal)
CPT/HCPCS: 97018; 97110; 97140; 97165

== ENCOUNTER 2021-12-21 07:07 | Outpatient (CLI) | payer MEDICARE, SELFPAY ==
[2021-12-21 07:24] LABS: Basophils Absolute Auto 0.1 K/mm3 (0.0-0.1); Eosinophils Absolute Auto 0.3 K/mm3 (0-0.3); Eosinophils Percent Auto 4.1 % (0-4.4); Hematocrit 39.3 % (37.0-47.0); Hemoglobin 12.7 g/dL (12.0-15.0); Immature Granulocyte Absolute 0.06 K/mm3 (0.00-0.031); Lymphocytes Absolute Auto 2.67 K/mm3 (0.9-3.2); Lymphocytes Percent Auto 42.6 % (18.3-44.2); Mean Corpuscular HGB Conc 32.3 g/dl (32-36); Mean Corpuscular Hemoglobin 30.7 pg (26-34); Mean Corpuscular Volume 94.9 fl (80-100); Mean Platelet Volume 9.7 fl (7.4-10.4); Monocytes Absolute Auto 0.3 K/mm3 (0.1-0.6); Monocytes Percent Auto 5.3 % (2.6-8.5); Neutrophils Absolute Auto 2.9 K/mm3 (1.3-6.7); Platelet Count Result 277 k/mm3 (150-375); Red Blood Count 4.14 M/mm3 (4.2-5.4); Red Cell Distribution Width 14.4 % (11.5-14.5); White Blood Count 6.3 K/mm3 (4.5-10.0)
[2021-12-21 07:44] LABS: Alanine Aminotransferase 22 U/L (6-35); Albumin Level 4.4 g/dL (3.5-5.1); Alkaline Phosphatase 93 U/L (38-126); Anion Gap 13 mmol/L (8-16); Aspartate Amino Transferase 26 U/L (14-36); Bilirubin,Total 0.3 mg/dL (0.2-1.3); Blood Urea Nitrogen 17 mg/dL (7-17); Calcium 8.8 mg/dL (8.4-10.2); Carbon Dioxide 22 mmol/L (22-30); Chloride 108 mmol/L (98-107); Cholesterol 227 mg/dL (0-200); Estimated Glomerular Filt Rate > 60; Glucose 105 mg/dL (65-110); HDL Direct 101 mg/dL; Potassium 4.1 mmol/L (3.4-5.0); Sodium 143 mmol/L (137-145); Triglycerides 69 mg/dL (<150)
[2021-12-21 07:55] LABS: LDL Cholesterol Direct 79 mg/dL
== END 2021-12-21 07:08 | disposition home or self-care (01) ==
LOC: ANHLAB 07:08
PROVIDERS: PCP Family Medicine; Visit Provider Family Medicine
DX: E78.2 Mixed hyperlipidemia (principal); I10 Essential (primary) hypertension
CPT/HCPCS: 36415; 80053; 80061; 85025

== ENCOUNTER 2022-05-22 15:45 | Outpatient (RCR) | payer MEDICARE, SELFPAY ==
--- NOTE | 2022-04-23 11:17 | PTOPEVAL1 ---
Assessment and note entered by César Drummond, PT Evaluation Information Diagnosis L shoulder pain with radicular symptoms Onset 2021 Subjective Information Patient report on she fell on her L side, like a tree being timbered . She has had pain along the entire L side. The shoulder is feeling a little better, but she will have numbness and tingling going down to her fingers. Pain is exacerbated with flexion and overhead motion. She has been given Tramadol to deal with the pain and has an ortho consult also ordered. Reported Pain Level Pain Score 1: Self Report Assessment PT Clinical Summary Kelli is a 71 year old female coming into the clinic for L shoulder pain with radiating numbness and tingling going all the way down to the fingers when arm is above the head. Compared to the R shoulder the L shoulder has decreased strength and range of motion. Patient has a positive lift off, empty can, and neers impingement test along with tenderness in the bicipital groove. S/S of rotator cuff injury. Patient may benefit from skilled physical therapy to improve strength and range of motion along with manual therapy and modalities to decrease L shoulder symptoms. Plan of Care Interventions Gait Training,Hot Pack/Cold Pack,Manual Therapy, Neuro Re-education,Patient/Caregiver Education, Therapeutic Activities,Therapeutic Exercise, Ultrasound PT Services Indicated Yes Treatment Frequency and 1-2x/wk for 4 weeks Duration These treatments will address the objective and functional deficits as defined above. The patient will be advanced safely and appropriately in order for the patient to progress towards his/her prior level of function. Additional exercises will be introduced and as well as a comprehensive home exercise program upon discharge, if needed, ?to ensure carryover of functional gains achieved in the clinic. This treatment plan has been reviewed and agreement upon by the patient.
--- NOTE | 2022-05-14 10:42 | PCPTNOTE ---
Patient called & cancelled scheduled appointment this date due to weather.
--- NOTE | 2022-05-22 16:08 | PTOPDC ---
Assessment and note entered by Amna Baeza, PT Evaluation Information Assessment Status Discharge Diagnosis L shoulder pain with radicular symptoms Onset Thanks2021 Subjective Information Kelli reports: better, having more movement; still having some pain with reaching forward; Reported Pain Level Pain Score Self Report L shoulder Additional Pain Score Comments pain range of 1-4 /10; minor burning in L anterior shoulder; sometimes have tingling into L hand, goes away when move arm; increase with reaching forward, doing exercises; decrease by resting and stop using the L arm; is not taking any pain meds; is not using heat/ice- reinforced PRN use; Assessment PT Clinical Summary Kelli has received 6 PT sessions. Compared to the initial eval: pain has decreased, but she continues to have intermittent tingling in L hand with positional change to ease it; shoulder ROM and strength have improved; she has been educated on HEP and correct posture with sit, stand and work positions. The goals were partially achieved. Discharge PT; she is to continue with her home exercises. Plan of Care PT Services Indicated No
== END 2022-05-23 11:26 | disposition home or self-care (01) ==
LOC: ANHPT 15:45
PROVIDERS: PCP Family Medicine
DX: M25.512 Pain in left shoulder (principal)
CPT/HCPCS: 97110; 97140; 97161; 97530